=== PATIENT | male | born 1940 | race Caucasian/White ===

== ENCOUNTER → 2017-06-22 | Outpatient (CLI) | payer MEDICARE, OTHER ==
[2017-06-22 13:04] VITALS: BP 131/87; PULSE 65; RESP 18
--- NOTE | 2017-06-22 14:48 | P.HPIM ---
History of Present Illness H&P Date: 06/22/17 Chief Complaint: low back pain This is a 76-year-old patient referred by Dr. Martinez for chronic pain in low back without radiation to legs. Patient has been taking medications from primary care physician including OTC meds with some relief. Patient denies adverse drug effects from medications. Patient also denies new-onset weakness, bowel/bladder incontinence, or any other signs or symptoms of cauda equina syndrome. There are no signs of acute intoxication, and no indications of medication diversion or overuse. Patient notes that pain worsens significantly with standing and walking, and improves with sitting, rest, and medication. Patient has used several types of medications for pain, including NSAIDS, OPIOIDS, TRAMADOL Patient HAS NOT had surgery. Patient HAS had injections previously (good relief from two sets of lumbar medial branch blocks). Patient HAS NOT had physical therapy recently. In addition to above, 13-point review of systems is also negative for chest pain , shortness of breath, changes in vision, changes in hearing, new onset weakness , abdominal pain, diarrhea, extreme fatigue, malaise, fever, skin changes, homicidal or suicidal ideation, or bowel or bladder incontinence. Vital Signs: Reviewed in EMR Gen: WDWN, AAOx3, NAD HEENT: NCAT, EOMI, hearing grossly normal Pulm: resp unlabored Abd: soft, NT, ND Neck: supple, trachea midline ROM in flexion lumbar spine: reduced ROM in extension lumbar spine: reduced Lumbar paravertebral tenderness: + Facet loading: + bilateral, R > L SI joint tenderness: + R side Theodore's test: + R side Straight leg raise: neg Neuro: CN II-XII grossly intact, muscle strength lower extremities PRESERVED Past Medical History Past Medical History: Atrial Fibrillation, Hearing Disorder / Deafness, Hypertension, Musculoskeletal Disorder, Osteoarthritis (OA) Additional Past Medical History / Comment(s): pacemaker History of Any Multi-Drug Resistant Organisms: None Reported Past Surgical History: Heart Catheterization With Stent, Orthopedic Surgery, Pacemaker, Tonsillectomy Additional Past Surgical History / Comment(s): shoulder left repair, right knee repair, left carpal tunnel surgery and release per dr. babcock Past Anesthesia/Blood Transfusion Reactions: No Reported Reaction Date of Last Stent Placement:: 2009 Type of Cardiac Device: Unknown Device Placement Date:: december, Smoking Status: Former smoker Medications and Allergies Home Medications Medication Instructions Recorded Confirmed Type Apixaban [Eliquis] 1 tab PO BID 06/22/17 06/22/17 History Aspirin 1 tab PO DAILY 06/22/17 06/22/17 History Furosemide [Lasix] 1 tab PO DAILY 06/22/17 06/22/17 History Lisinopril [Zestril] 1 tab PO DAILY 06/22/17 06/22/17 History Metoprolol Succinate [Toprol XL] 1 tab PO DAILY 06/22/17 06/22/17 History Pyridoxine [Vitamin B-6] 1 tab PO DAILY 06/22/17 06/22/17 History Simvastatin 1 tab PO DIRECTED 06/22/17 06/22/17 History Allergies Allergy/AdvReac Type Severity Reaction Status Date / Time No Known Allergies Allergy Verified 06/22/17 12:41 Physical Exam Vitals: Vital Signs Pulse Resp BP Pulse Ox 06/22/17 12:49 65 18 131/87 95 Intake and Output 06/21/17 06/22/17 06/22/17 22:59 06:59 14:59 Other: Weight 97.522 kg Patient Weight 06/23/17 06:59 Weight 97.522 kg Results Comments: reviewed in EMR Assessment and Plan (1) Lumbar spondylosis Current Visit: Yes Status: Chronic Code(s): M47.816 - SPONDYLOSIS W/O MYELOPATHY OR RADICULOPATHY, LUMBAR REGION SNOMED Code(s): 361204664 (2) Lumbar degenerative disc disease Current Visit: Yes Status: Chronic Code(s): M51.36 - OTHER INTERVERTEBRAL DISC DEGENERATION, LUMBAR REGION SNOMED Code(s): 53152993 (3) Chronic pain syndrome Current Visit: Yes Status: Chronic Code(s): G89.4 - CHRONIC PAIN SYNDROME SNOMED Code(s): 276384380 Plan: 1. Explanation: Opioid and psychological risk scores were reviewed. Diagnoses , prognoses, and multiple treatment options including but not limited to physical therapy, interventional therapies, adjuvant medical therapies, narcotic medication therapies, and surgery were discussed with the patient and all questions were answered to the patient's satisfaction. 2. Opioid agreement: no opioids prescribed today 3. Counseling: The patient was counseled extensively on BODY MASS INDEX, EXERCISE. Specifically, the patient was instructed regarding the importance of weight control, and exercise in the context of both chronic pain and overall health. 4. Procedures: R lumbar RFA (patient had two previous MBBs done by Dr. Martinez ) if patient can be off Eliquis for three days 5. Consultations: none 6. Investigations: none 7. Medications: none prescribed 8. Disposition: f/u for procedure as scheduled PQRS measures: 1-Patient's medications are documented in the chart. 2-Tobacco use is negative 3-Patient has not had a pneumococcal vaccine. 4-Advanced care planning discussed, patient unable to give. 5-Opioid contract NOT signed with the patient. 6-Pain positive, follow-up visit or procedure scheduled 7-Patient's blood pressure measured and documented and has been high 8-Patient's weight was measured, and body mass index ABOVE the normal limits, and counseling was done. Patient instructed to follow up with PCP. 9-Patient WAS NOT identified as an unhealthy alcohol user.
== END | disposition home or self-care (01) ==
LOC: PNWHC3 12:26
PROVIDERS: ATTEND Anesthesiology
DX: G89.4 Chronic pain syndrome (principal); M51.36 Other intervertebral disc degeneration, lumbar region; M47.816 Spondylosis without myelopathy or radiculopathy, lumbar region; I48.91 Unspecified atrial fibrillation; I10 Essential (primary) hypertension; Z79.01 Long term (current) use of anticoagulants; Z87.891 Personal history of nicotine dependence; Z79.899 Other long term (current) drug therapy
CPT/HCPCS: 99201

== ENCOUNTER 2017-06-28 06:13 | Day surgery (SDC) | payer MEDICARE, OTHER ==
[2017-06-24 13:57] VITALS: BMI 29.1
[~2017-06-28 06:13] MED LIST: LACTATED RINGERS 1,000 ML IV SCH
[2017-06-28 06:42] VITALS: RESP 18; TEMP 98.1
[2017-06-28] MEDS ORDERED: LACTATED RINGERS 1,000 ML IV ONE (06:43)
[2017-06-28] MEDS ORDERED: LIDOCAINE 1% 20 ML VIAL (10MG/ML) FOR IV START INTRADERMA ONE (06:43)
--- NOTE | 2017-06-28 07:43 | P.PCN ---
Date of Procedure: 06/28/17 Procedure(s) Performed: PREOPERATIVE DIAGNOSIS: 1-Lumbar Spondylosis with Facet Arthropathy without myelopathy. 2- Lumber degenerative disc disease. 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 2- Lumber degenerative disc disease. PROCEDURES : Left Radiofrequency thermocoagulation, L2-3 ,L3-L4, L4-L5, medial branch, with fluoroscopic guidance ANESTHESIA: Moderate sedation with intravenous versed 1 mg and fentaneyl 50 mcg and local infiltration with lidocaine 1% 3 ml EBL: Minimal PROCEDURE INDICATION: The patient with low back pain secondary to lumbar facet arthropathy who had more than 50% relief of her pain with previous diagnostic lumbar medial branch block with bupivacaine. PROCEDURE DESCRIPTION / TECHNIQUE: The patient was seen and identified in the preoperative area. Risks, benefits, complications, including but not limited to risk of infection ,bleeding , allergic reactions to the medications and no complete pain releife , and alternatives were discussed with the patient, the patient agreed to proceed with the procedure and signed the consent. IV was started. Vital signs remained stable throughout the procedure. Patient was taken to the OR and time out was completed. The patient was placed in the prone position on the procedure table. The lumber area was prepped and draped in the usual sterile fashion. . Vital signs were closely monitored during the procedure .IV sedation was used during the procedure to decrease patients anxiety. Using AP and then oblique fluoroscopy, the ``eye of the Lio dog corresponding to the connection between the superior and transverse articular processes of Left L2 , L3, L4, were identified, marked, and localized with 1% lidocaine. Subsequently, a 18 [id number] radiofrequency cannula with a 10-mm active tip was advanced guided by fluoroscopy to each of the ``eyes of the Lio dog at Left L2 , L3, L4, . Each site then underwent sensory testing at 50 Hz and 0 to 1 volt and motor testing at 2.5 Hz and 0 to 3 volt with local stimulation, but no radicular symptoms down the legs. Thereafter the Left L2-3 ,L3-4, L4-5, sites underwent radiofrequency thermocoagulation at 80 degrees celsius for 90 seconds after injecting 0.5 ml of PF lidocaine 1%. then After the thermocoagulation done , 1 ml of the block solution containing Kenalog 40 mg and 3 ml of marain 0.5% was injected at the Left L2-3 ,L3-4 , L4- 5 ,, levels after negative aspiration of CSF and blood and with no paresthesias. Cannulas were retracted while injecting lidocaine 1% until the needle is out. At the end of the procedure, the skin was cleansed and bandages were applied. COMPLICATIONS: No acute complications. DISPOSITION / PLANS: The patient was placed in a supine position and transferred to the recovery area in a stable condition for observation and was discharged from the recovery room after meeting discharge criteria. Home discharge instructions given to the patient by the staff. The patient was reexamined prior to discharge. The patient will schedule a follow up in the clinic in 2-4 weeks.
[2017-06-28] MEDS ORDERED: IV FLUID CONTINUATION 700 ML IV ONE (07:53)
[2017-06-28 08:07] VITALS: BP 117/78; PULSE 70
--- NOTE | 2017-06-28 09:51 | FL ---
Fluoroscopy HISTORY: Pain 14 seconds fluoroscopy time supplied to the referring clinician. 3 intraoperative C-arm images docum ent the procedure. See dictated report from anesthesia.
== END 2017-06-28 08:31 | disposition home or self-care (01) ==
LOC: ORPAIN 06:13
PROVIDERS: ATTEND Specialist
DX: M47.816 Spondylosis without myelopathy or radiculopathy, lumbar region (principal); M51.36 Other intervertebral disc degeneration, lumbar region; M48.061 Spinal stenosis, lumbar region without neurogenic claudication; I48.91 Unspecified atrial fibrillation; Z79.01 Long term (current) use of anticoagulants; I10 Essential (primary) hypertension
CPT/HCPCS: 64635; 64636 ×2; J2250; J3301; J3010; G0463; 99152; 99211

== ENCOUNTER 2017-08-23 07:42 | Day surgery (SDC) | payer MEDICARE, OTHER ==
[2017-08-17 16:20] VITALS: BMI 29.1
[2017-08-23 09:09] VITALS: RESP 16; TEMP 97.1
[2017-08-23] MEDS ORDERED: LACTATED RINGERS 1,000 ML IV ONE (09:19)
[2017-08-23] MEDS ORDERED: LIDOCAINE 1% 20 ML VIAL (10MG/ML) FOR IV START INTRADERMA ONE (09:19)
--- NOTE | 2017-08-23 10:00 | P.PCN ---
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 2- Lumber degenerative disc disease. 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 2- Lumber degenerative disc disease. PROCEDURES : Right Radiofrequency thermocoagulation, L2-3 , L3-L4, L4-L5, medial branch, with fluoroscopic guidance ANESTHESIA: Moderate sedation with intravenous versed 1 mg and fentaneyl 50 mcg and local infiltration with lidocaine 1% 6 ml EBL: Minimal PROCEDURE INDICATION: The patient with low back pain secondary to lumbar facet arthropathy who had more than 50% relief of her pain with previous diagnostic lumbar medial branch block with bupivacaine. ( patient held the ELIQUIS for 3 days ) PROCEDURE DESCRIPTION / TECHNIQUE: The patient was seen and identified in the preoperative area. Risks, benefits, complications, including but not limited to risk of infection ,bleeding , allergic reactions to the medications and no complete pain releife , and alternatives were discussed with the patient, the patient agreed to proceed with the procedure and signed the consent. IV was started. Vital signs remained stable throughout the procedure. Patient was taken to the OR and time out was completed. The patient was placed in the prone position on the procedure table. The lumber area was prepped and draped in the usual sterile fashion. . Vital signs were closely monitored during the procedure .IV sedation was used during the procedure to decrease patients anxiety. Using AP and then oblique fluoroscopy, the ``eye of the Lio dog corresponding to the connection between the superior and transverse articular processes of right L2 , L3, L4, were identified, marked, and localized with 1% lidocaine. Subsequently, a 18 [id number] radiofrequency cannula with a 10-mm active tip was advanced guided by fluoroscopy to each of the ``eyes of the Lio dog at right L2 , L3, L4,, Each site then underwent sensory testing at 50 Hz and 0 to 1 volt and motor testing at 2.5 Hz and 0 to 3 volt with local stimulation, but no radicular symptoms down the legs. Thereafter the right L2-3 , L3-4, L4-5, sites underwent radiofrequency thermocoagulation at 80 degrees celsius for 90 seconds after injecting 0.5 ml of PF lidocaine 1%. then After the thermocoagulation done , 1 ml of the block solution containing Kenalog 40 mg and 3 ml of marcain 0.5% was injected at the right L2-3 ,L3-4 , L4-5 ,, levels after negative aspiration of CSF and blood and with no paresthesias. Cannulas were retracted while injecting lidocaine 1% until the needle is out. At the end of the procedure, the skin was cleansed and bandages were applied. COMPLICATIONS: No acute complications. DISPOSITION / PLANS: The patient was placed in a supine position and transferred to the recovery area in a stable condition for observation and was discharged from the recovery room after meeting discharge criteria. Home discharge instructions given to the patient by the staff. The patient was reexamined prior to discharge. The patient will schedule a follow up in the clinic in 2-4 weeks.
[2017-08-23] MEDS ORDERED: IV FLUID CONTINUATION 1,000 ML IV ONE (10:09)
[2017-08-23 10:26] VITALS: BP 132/82; PULSE 68
--- NOTE | 2017-08-23 10:44 | FL ---
EXAMINATION TYPE: FL guided pain mgmt statistic DATE OF EXAM: 08/23/2017 HISTORY: Flouroscopy time 7 seconds of fluoroscopy provided. IMPRESSION: 1. Fluoroscopy time.
== END 2017-08-23 10:49 | disposition home or self-care (01) ==
LOC: ORPAIN 07:42
PROVIDERS: ATTEND Specialist
DX: M47.816 Spondylosis without myelopathy or radiculopathy, lumbar region (principal); M51.36 Other intervertebral disc degeneration, lumbar region; I25.10 Atherosclerotic heart disease of native coronary artery without angina pectoris; I48.91 Unspecified atrial fibrillation; I10 Essential (primary) hypertension; Z79.01 Long term (current) use of anticoagulants
CPT/HCPCS: 64635; 64636; J2250; J3301; J3010; 99152

== ENCOUNTER → 2017-09-15 | Outpatient (CLI) | payer MEDICARE, OTHER ==
[2017-09-15 14:39] VITALS: BP 118/67; PULSE 68; RESP 16; TEMP 97.9
--- NOTE | 2017-09-15 15:00 | P.PN ---
Progress Note - Text Progress Note Date: 09/15/17 Patient returns for followup for chronic back pain with radiation to hips. Patient recently underwent bilateral lumbar RFA, which provided some relief for interval since procedure. Patient continues on no regular pain medications for pain with some relief. Patient denies adverse drug effects from medications. Today, pt denies new-onset weakness, bowel/bladder incontinence, or any other signs or symptoms of cauda equina syndrome. There are no signs of acute intoxication, and no indications of medication diversion or overuse. In addition to above, 13-point review of systems is also negative for chest pain , shortness of breath, changes in vision, changes in hearing, new onset weakness , abdominal pain, diarrhea, extreme fatigue, malaise, fever, skin changes, homicidal or suicidal ideation, or bowel or bladder incontinence. Vital Signs: Reviewed in EMR Gen: WDWN, AAOx3, NAD HEENT: NCAT, EOMI, hearing grossly normal Pulm: resp unlabored Abd: soft, NT, ND Neck: supple, trachea midline ROM in flexion lumbar spine: reduced ROM in extension lumbar spine: reduced Lumbar paravertebral tenderness: + Facet loading: + bilateral L > R SI joint tenderness: neg Theodore's test: neg Straight leg raise: neg Imaging: Reviewed in EMR Assessment: 1. lumbar spondylosis 2. CHF with AICD/pacer 3. chronic pain syndrome Plan: 1. Explanation: Opioid and psychological risk scores were reviewed. Diagnoses , prognoses, and multiple treatment options including but not limited to physical therapy, interventional therapies, adjuvant medical therapies, narcotic medication therapies, and surgery were discussed with the patient and all questions were answered to the patient's satisfaction. 2. Opioid agreement: no opioids prescribed today 3. Counseling: The patient was counseled extensively on BODY MASS INDEX, EXERCISE. Specifically, the patient was instructed regarding the importance of weight control, and exercise in the context of both chronic pain and overall health. 4. Procedures: none for now 5. Consultations: None 6. Investigations: none 7. Medications: none prescribed 8. Disposition: f/u as needed. Patient to return to Dr. Martinez for further management. Will discuss Mobic with his PCP as it was giving him substantial relief for several years prior to its being discontinued as he was put on Eliquis when his AICD was placed.
== END | disposition home or self-care (01) ==
LOC: PNWHC3 14:18
PROVIDERS: ATTEND Anesthesiology
DX: G89.4 Chronic pain syndrome (principal); M54.9 Dorsalgia, unspecified; M47.816 Spondylosis without myelopathy or radiculopathy, lumbar region; I50.9 Heart failure, unspecified; Z95.810 Presence of automatic (implantable) cardiac defibrillator
CPT/HCPCS: 99211